=== PATIENT | female | born 1980 | race Caucasian/White ===

== ENCOUNTER 2020-04-27 17:19 | Emergency (ER) | payer MEDICAID ==
[~2020-04-27] VITALS: Ht 160 cm; Wt 102.0 kg
--- NOTE | 2020-04-27 17:31 | NUR ---
DIRECT MAIL CLERK PRESENT DURING EKG. PT TOLERATED WITH NO COMPLICATIONS.
--- NOTE | 2020-04-27 18:55 | NUR ---
REPORT FROM CARMELITA ROJAS ASSUMING CARE OF PT AT THIS TIME
[2020-04-27] MEDS ORDERED: ASPIRIN 81 MG TABLET CHEW ONE (19:21)
[2020-04-27 19:24] VITALS: BP 122/82
[2020-04-27] MEDS ORDERED: ASPIRIN 81 MG TABLET CHEW PO ONE (19:30)
[2020-04-27 19:32] LABS: TROPONIN I < 0.015 ng/mL (0.000-0.045)
[2020-04-27 20:05] LABS: MD YES
[2020-04-27 20:09] LABS: ANION GAP 7 mmol/L (5-15); CHLORIDE 107 mmol/L (98-107); CREATININE 1.19 mg/dL (0.55-1.02)
[2020-04-27 20:49] LABS: MEAN CORPUSCULAR HEMOGLOBIN 31.4 pg (27.0-34.8); MEAN CORPUSCULAR HGB CONC 34.2 g/dL (32.4-35.8); MEAN PLATELET VOLUME 9.7 fL (7.4-10.4); PLATELET COUNT 284 x10^3/uL (130-400); RED BLOOD COUNT 4.95 x10^6/uL (3.82-5.3); RED CELL DISTRIBUTION WIDTH 12.9 % (9.6-15.2)
--- NOTE | 2020-04-27 20:49 | NUR ---
PT RESTING ON ALAN WOMACK AWARE OF POC AND WAITING ON LAB RESULTS
[2020-04-27 20:51] LABS: <PLATELET ESTIMATE> ADEQUATE; <PLT MORPHOLOGY> NORMAL PLT MORPH; <RBC MORPHOLOGY> NORMAL; BANDS%(MANUAL) 3 % (0-7); EOS% (MANUAL) 1 % (1-7); LYMPH#(MANUAL) 1.68 x10^3/uL (1-3.4); LYMPHS% (MANUAL) 17 % (22-44); SEG#(MANUAL) 7.82 x10^3/uL (1.8-6.8); SEGS% (MANUAL) 79 % (42-75)
--- NOTE | 2020-04-27 21:22 | NUR ---
Patient given discharge instructions and they have confirmed that they understand the instructions. Patient ambulatory with steady gait. NAD, NO PT BELONGINGS LEFT IN ROOM AFTER DC. ALL QUESTIONS ANSWERED APPROPRIATELY.
== END 2020-04-27 21:24 | disposition home or self-care (01) ==
LOC: ED 20:02
DX: S37.009A Unspecified injury of unspecified kidney, initial encounter (principal); R07.89 Other chest pain; M62.838 Other muscle spasm; M54.9 Dorsalgia, unspecified; X58.XXXA Exposure to other specified factors, initial encounter; Y93.89 Activity, other specified; Y92.89 Other specified places as the place of occurrence of the external cause; Y99.8 Other external cause status
CPT/HCPCS: 36415; 71045; 80048; 84484; 85025; 85379; 93005; 99285

== ENCOUNTER → 2020-08-14 | Outpatient (CLI) | payer MEDICAID | END | disposition home or self-care (01) | LOC: RAD 09:04 | PROVIDERS: ATTEND Surgery | DX: Z01.818 Encounter for other preprocedural examination (principal); E66.01 Morbid (severe) obesity due to excess calories; Z68.41 Body mass index [BMI] 40.0-44.9, adult | CPT/HCPCS: 71046; 74240 ==